=== PATIENT | female | born 1985 ===

== ENCOUNTER 2022-06-10 09:14 | Outpatient (CLI) | payer OTHER | END 2022-06-10 09:22 | disposition home or self-care (01) | LOC: RX STUDY 09:14 | PROVIDERS: ATTEND Obstetrics & Gynecology Reproductive Endocrinology | DX: N93.0 Postcoital and contact bleeding (principal) ==

== ENCOUNTER 2025-03-16 09:18 | Outpatient (CLI) | payer OTHER | END 2025-03-16 09:27 | disposition home or self-care (01) | LOC: SONOGRAMA 09:18 | PROVIDERS: ATTEND Obstetrics & Gynecology Reproductive Endocrinology | DX: N93.8 Other specified abnormal uterine and vaginal bleeding (principal) ==